=== PATIENT | female | born 1945 | race Caucasian/White ===

== ENCOUNTER 2016-04-13 06:41 | Emergency (ER) | payer MEDICARE ==
[2016-04-13 07:19] LABS: #Eosinphils 0.1 thou/uL (0.0-0.7); #Lymphocytes 0.5 thou/uL (1.20-3.40); #Monocytes 0.1 thou/uL (0.11-0.59); %Basophils 0.4 % (0.0-1.0); %Eosinophils 0.9 % (0.0-10.0); %Monocytes 1.9 % (0.0-10.0); Hematocrit 32.5 % (36.0-47.0); Mean Platelet Volume 5.7 fL (7.4-10.4); Red Blood Cell (RBC) Count 3.21 mill/uL (4.20-5.40); White Blood Cell (WBC) Count 5.6 thou/uL (4.8-10.8)
[2016-04-13] MEDS ORDERED: Levofloxacin 500 mg/D5W 100 ml Premix Bag ONE (07:32)
[2016-04-13] MEDS ORDERED: Sodium Chloride 0.9% 1,000 ML ONE (07:32)
[2016-04-13 07:35] LABS: ALT (SGPT) 9 U/L (0-55); AST (SGOT) 11 U/L (5-34); Alkaline Phosphatase 48 U/L (40-150); Anion Gap 12 mmol/L (10-20); BUN (Urea Nitrogen) 16 mg/dL (9.8-20.1); Bilirubin, Total 0.8 mg/dL (0.2-1.2); Calc. Creatinine Clearance 0 mL/min (70-130); Calcium 8.9 mg/dL (7.8-10.44); Chloride 108 mmol/L (98-107); Estimated GFR-MDRD 80; Globulin 2.9 g/dL (2.4-3.5); Protein, Total 6.7 g/dL (5.8-8.1)
[2016-04-13 07:40] LABS: Carbon Dioxide 22 mmol/L (23-31)
--- NOTE | 2016-04-13 07:59 | RAD ---
CHEST 1 VIEW: HISTORY: Lung cancer. Cough. COMPARISON: CT chest from 03/27/16. FINDINGS: Cardiac silhouette is magnified by projection. Mediastinum is midline with aortic calcification. R ight perihilar mass and infiltrate are similar in appearance to the prior exam. Lung markings exten d beyond a skin fold at the right lateral chest that mimics a pneumothorax. radiation monitor leads o verlie the chest. IMPRESSION: Right perihilar mass and infiltrate appear stable compared to recent CT. POS: LIONEL
[2016-04-13 08:16] LABS: Bilirubin Negative (Negative); Blood, Urine Negative (Negative); Glucose, Urine (Dipstick) Negative (Negative); Ketone, Urine Negative (Negative); Nitrite Positive (Negative); Protein, Urine (Dipstick) Negative (Neg-Trace)
[2016-04-13 08:24] LABS: RBC/HPF None Seen HPF (0-3)
[2016-04-13 08:25] LABS: Bacteria/HPF Rare-Few HPF (None Seen); Squamous Epithelial 0-3 HPF (0-3); WBC/HPF 0-3 HPF (0-3)
[2016-04-13] MEDS ORDERED: Sodium Chloride 0.9% 100 ML ONE (08:37)
[2016-04-13] MEDS ORDERED: cefTRIAXone\\ROCEPHIN 2 GM VIAL ONE (08:37)
[2016-04-13] MEDS ORDERED: HYDROcodone/Acetaminophen 10/325 mg Tablet ONE (08:40)
[2016-04-13] MEDS ORDERED: Benzonatate 100 MG CAP ONE (08:41)
--- NOTE | 2016-04-13 09:29 | ERRECORD ---
[facility] EMERGENCY RECORD ADMIN (06:46 EPIE) MERGE: Ambulance SatApr 13, 2016 06:26. HPI COUGH (07:07 SHAN) CHIEF COMPLAINT: Patient presents for evaluation of cough, non-productive, Patient presents for evaluation of getting worse for several days. HISTORIAN: History provided by patient, History provided by patient's spouse. SEVERITY: Maximum severity of symptoms moderate, Currently symptoms are moderate. EXACERBATED BY: Patient's condition exacerbated by nothing. RELIEVED BY: Patient's condition relieved by nothing. ROS (07:08 SHAN) CONSTITUTIONAL: Historian reports weakness. EYES: Negative eye review of systems. ENT: Historian reports hearing changes. CARDIOVASCULAR: Negative cardiovascular review of systems. RESPIRATORY: Historian reports cough. GI: Negative gastrointestinal review of systems. GENITOURINARY FEMALE: Negative genitourinary review of systems. MUSCULOSKELETAL: Negative musculoskeletal review of systems. SKIN: Negative skin review of systems. PSYCHIATRIC: Negative psychiatric review of systems. NOTES: All systems reviewed, negative except as described above. 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 (06:55 EPIE) Notes: lung cancer undergoing chemotherapy; small cell per . (07:13 SHAN) FEMALE SURGICAL HISTORY: CARDIAC STENTS, Surgical history of orthopedic surgery, BACK, right hip REPLACEMENT. (06:55 EPIE) PSYCHIATRIC HISTORY: No previous psychiatric history. (06:55 EPIE) SOCIAL HISTORY: Patient has no smoking history, Patient denies alcohol use, Patient denies drug use. (06:55 EPIE) Social History includes , speaks Vietnamese. Lives two blocks from hospital. (07:13 SHAN) FAMILY HISTORY: Family istory is not significant. (07:13 SHAN) NOTES: Nursing records reviewed, Agree with nursing records. (07:13 SHAN) &a-1R&a+25V*p+0X*n1364P*c202B*c15G*c2P*p-0X&a-25V&a+1R Name: Marisa Quinn : 1945 F70 MedRec: [id number] AcctNum: [id number] Prepared: SatApr 13, 2016 09:52 by Interface Page 1 of 4 pMD [facility] EMERGENCY RECORD KNOWN ALLERGIES Gluten Allergy Penicillins CURRENT MEDICATIONS Ecotrin Low Strength: TABLET, DELAYED RELEASE (ENTERIC COATED) : Strength - 81 mg : ORAL Patient Dose: once a day. (07:29 MSPE) albuterol sulfate: HFA AEROSOL WITH ADAPTER (GRAM) : Strength - 90 mcg : INHALATION Patient Dose: 2 inhalation INHALATION every 6 hours. (07:29 MSPE) Topamax: TABLET : Strength - 50 mg : ORAL Patient Dose: 1.5 tab(s) Oral.6 times a day. (07:36 MSPE) meTOPROLOL succinate: TABLET, EXTENDED RELEASE 24 HR : Strength - 50 mg : ORAL Patient Dose: 1 tab(s) Oral once a day. (07:37 MSPE) Head Waters: TABLET : Strength - 10 mg-325 mg : ORAL Patient Dose: 1-2 tab(s) Oral every 4 hours prn. (07:38 MSPE) Benicar HCT: TABLET : Strength - 40 mg-12.5 mg : ORAL Patient Dose: 1 tab(s) Oral once a day. (07:38 MSPE) pantoprazole: TABLET, DELAYED RELEASE (ENTERIC COATED) : Strength - 40 mg : ORAL Patient Dose: 1 tab(s) Oral once a day. (07:39 MSPE) VITAL SIGNS VITAL SIGNS: BP: 133/82, Resp: 20 (Non-Labored), Pain: 9, Time: 04/13/2016 06:42. (06:42 EPIE) Pulse: 105, Temp: 99.8 (Oral), O2 sat: 98 on Room Air, Time: 04/13/2016 06:46. (06:46 EPIE) BP: 138/75, Pulse: 96, Resp: 28, O2 sat: 99 on RA, Time: 04/13/2016 07:20. (07:20 MSPE) BP: 138/80, Pulse: 99, Resp: 20, O2 sat: 99 on Room Air, Time: 04/13/2016 08:00. (08:00 MSPE) Temp: 99.0 (Oral), Time: 04/13/2016 08:23. (08:23 MSPE) BP: 124/75, Pulse: 100, Resp: 13, O2 sat: 98 on Room Air, Time: 04/13/2016 09:00. (09:00 MSPE) PHYSICAL EXAM (07:09 SHAN) CONSTITUTIONAL: Vital Signs Reviewed, Patient afebrile, Pulse normal, Blood pressure normal, Respiratory rate normal, Normal pulse oximetry, Patient appears non toxic, Patient appears pain free, Patient alert and oriented to person, place and time, Nursing notes reviewed. HEAD: s/p hair loss from chemotherapy. EYES: Eye exam normal. &a-1R&a+25V*p+0X*v7091X*c202B*c15G*c2P*p-0X&a-25V&a+1R Name: Marisa Quinn : 1945 F70 MedRec: [id number] AcctNum: [id number] Prepared: SatApr 13, 2016 09:52 by Interface Page 2 of 4 pMD [facility] EMERGENCY RECORD ENT: Ear exam normal, Nose exam normal, Pharynx exam normal, Uvula exam normal, Tonsil exam normal, substantial hearing loss apparent, ongoing with tumor and chemo per . NECK: Neck exam normal. RESPIRATORY CHEST: minor ronchi and wheezing; some mild decreased breath sounds. CARDIOVASCULAR: Cardiovascular exam included findings of heart rate regular rate and rhythm, Heart sounds normal. ABDOMEN FEMALE: Abdominal exam included findings of abdomen nontender, Bowel sounds normal. BACK: Back exam normal. UPPER EXTREMITY: Upper extremity exam normal. NEURO: Hearing loss; mild difficulty with comprehension; but may be more from the communitation issues. Recognizes person, place and situation. SKIN: dry. LYMPHATIC: Lymphatic exam normal. PSYCHIATRIC: Psychiatric exam normal. MEDICATION ADMINISTRATION SUMMARY Drug Name: *Rocephin intravenous, Dose Ordered: 2 g, Route: IV Push, Status: Given, Time: 08:48 04/13/2016, Drug Name: Head Waters, Dose Ordered: 1 tab(s), Route: Oral, Status: Given, Time: 08:47 04/13/2016, Drug Name: Helena Ma, Dose Ordered: 2 cap(s), Route: Oral, Status: Given, Time: 08:47 04/13/2016, Drug Name: Levaquin intravenous, Dose Ordered: 500 mg, Route: IV Piggy Back, Status: Given, Time: 07:45 04/13/2016, Drug Name: Normal Saline, Dose Ordered: 1 L, Route: IV Fluid Infusion, Status: Given, Time: 07:45 04/13/2016, *Additional information available in notes, Detailed record available in Medication Service section. DOCTOR NOTES TEXT: Adult female, arrived by ambulance, accompanied by . c/o cough getting worse and causing much irritation. Was to talk with hospice later today. 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 Has had cardiac stents, orthopedic surgeries, and lesser problems in past. (07:15 SHAN) cbc, chem 20, ekg reasonably good; chest x-ray with right hilar mass and superior infiltrates, but read by radiologist as similar to prior ct of chest. Family present. Apparently they have all had a respiratory infection recently. 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 EMERGENCY RECORD date, Tetanus immunization up to date, Pneumococcal vaccine not up to date, (*per notes; but family relates that had flu and pneumonia update after this.) Past medical history includes cardiac history, Past medical history includes hematological history, Past medical history includes history of hypertension, Lung cancer (treated with radiation and chemo), asthma, trimeglia neuroglia, DC. FEMALE SURGICAL HISTORY: CARDIAC STENTS, Surgical history of orthopedic surgery, BACK, right hip REPLACEMENT . (07:26 SHAN) Discussed with her primary care provider; several discussions with family. Was advised to allow attempt at home care and them to meet with hospice. Also recommended that they all try hard to work as a unit to achieve her goals; if that can be understood. (09:14 NAVID) DATA REVIEWED: Lab data reviewed, Xray data reviewed, Reviewed EKG. (07:52 NAVID) Lab data reviewed, Xray data reviewed, Reviewed EKG. (09:14 NAVID) PROBLEM LIST No recorded problems DIAGNOSIS (:17 NAVID) FINAL: PRIMARY: Acute bronchitis, ADDITIONAL: coronary artery disease, Hypertension, MUSCLE WEAKNESS GENERALIZED, small cell carcinoma of lung with brain and adrenal mets. PRESCRIPTION Levaquin oral: TABLET : 500 mg : ORAL : Quantity: 1 Unit: tab(s) Route: ORAL Schedule: once a day Dispense: 10 Unit: tab(s) May substitute. Refills: No Refills . (:18 NAVID) NOTES: No Refills. (09:18 NAVID) Tessalon Perles: CAPSULE : 100 mg : ORAL : Quantity: 2 Unit: cap(s) Route: ORAL Schedule: every 6 hours PRN Dispense: 60 Unit: cap(s) May substitute. Refills: 1 . (: NAVID) NOTES: No Refills. (09: NAVID) DISPOSITION PATIENT: Disposition Type: Discharge, Disposition: *Discharge Home. (09:17 NAVID) Patient left the department. (09:50 HUGH) Winter: ADAM=MIKE Renner, Angelique MSPE=MIKE Saravia, Anne SHOEMAKER=MD Ernestina, Will &a-1R&a+25V*p+0X*t4212R*c202B*c15G*c2P*p-0X&a-25V&a+1R Name: Marisa Quinn : 1945 F70 MedRec: [id number] AcctNum: [id number] Prepared: SatApr 13, 2016 09:52 by Interface Page 4 of 4 pMD MTDD
--- NOTE | 2016-04-13 09:32 | PICIS ---
[facility] EMERGENCY RECORD ADMIN MERGE: Ambulance SatApr 13, 2016 06:26. (06:46 EPIE) TRIAGE (SatApr 13, 2016 06:44 EPIE) TRIAGE NOTES: Pt reports that she started chemo last week. Pt has meeting with hospice today. Pt reports weakness ongoing with cough. Last round of chemo on Saturday. (SatApr 13, 2016 06:44 EPIE) PATIENT: NAME: Marisa Quinn, AGE: 70, GENDER: female, : Sat1945, TIME OF GREET: SatApr 13, 2016 06:42, PREFERRED LANGUAGE: French, ETHNICITY: Not or , ECODE BILLING MAP: [facility], SSN: [id number], Zip Code: [address], KG WEIGHT: 54.43, PHONE: , , , PERSON ID: [id number], PCP: Chriss NORIEGA LUKE. (SatApr 13, 2016 06:44 EPIE) COMPLAINT: WEAKNESS. (SatApr 13, 2016 06:44 EPIE) ADMISSION: URGENCY: 3 Urgent, ADMISSION SOURCE: Home, TRANSPORT: AMBULANCE - [facility], BED: TRIAGE. (SatApr 13, 2016 06:44 EPIE) IMMUNIZATIONS: Flu vaccine up to date, Date of immunization: , Pneumococcal vaccine up to date, Date of immunization: Mar, 2016. (07:35 MSPE) TRIAGE SCREENING: Patient denies suicidal ideation, Patient denies presence of domestic violence. (06:55 EPIE) TREATMENTS IN PROGRESS: Treatments given Prehospital: none. (06:55 EPIE) PROVIDERS: TRIAGE NURSE: Angelique Renner RN. (SatApr 13, 2016 06:44 EPIE) VITAL SIGNS: BP 133/82, Resp 20, (Non-Labored), Pain 9, Time 04/13/2016 06:42. (06:42 EPIE) PREVIOUS VISIT ALLERGIES: Penicillins. (SatApr 13, 2016 06:44 EPIE) Penicillins. (06:55 EPIE) KNOWN ALLERGIES Gluten Allergy Penicillins CURRENT MEDICATIONS Ecotrin Low Strength: TABLET, DELAYED RELEASE (ENTERIC COATED) : Strength - 81 mg : ORAL Patient Dose: once a day. (07:29 MSPE) albuterol sulfate: HFA AEROSOL WITH ADAPTER (GRAM) : Strength - 90 mcg : INHALATION Patient Dose: 2 inhalation INHALATION every 6 hours. (07:29 MSPE) Topamax: TABLET : Strength - 50 mg : ORAL Patient Dose: 1.5 tab(s) Oral.6 times a day. (07:36 MSPE) meTOPROLOL succinate: TABLET, EXTENDED RELEASE 24 HR : Strength - 50 mg : ORAL &a-1R&a+25V*p+0X*b6450Q*c202B*c15G*c2P*p-0X&a-25V&a+1R Name: Marisa Quinn : 1945 F70 MedRec: [id number] AcctNum: [id number] Prepared: SatApr 13, 2016 09:54 by Interface Page 1 of 13 pMD [facility] EMERGENCY RECORD Patient Dose: 1 tab(s) Oral once a day. (07:37 MSPE) [place]: TABLET : Strength - 10 mg-325 mg : ORAL Patient Dose: 1-2 tab(s) Oral every 4 hours prn. (07:38 MSPE) Benicar HCT: TABLET : Strength - 40 mg-12.5 mg : ORAL Patient Dose: 1 tab(s) Oral once a day. (07:38 MSPE) pantoprazole: TABLET, DELAYED RELEASE (ENTERIC COATED) : Strength - 40 mg : ORAL Patient Dose: 1 tab(s) Oral once a day. (07:39 MSPE) VITAL SIGNS VITAL SIGNS: BP: 133/82, Resp: 20 (Non-Labored), Pain: 9, Time: 04/13/2016 06:42. (06:42 EPIE) Pulse: 105, Temp: 99.8 (Oral), O2 sat: 98 on Room Air, Time: 04/13/2016 06:46. (06:46 EPIE) BP: 138/75, Pulse: 96, Resp: 28, O2 sat: 99 on RA, Time: 04/13/2016 07:20. (07:20 MSPE) BP: 138/80, Pulse: 99, Resp: 20, O2 sat: 99 on Room Air, Time: 04/13/2016 08:00. (08:00 MSPE) Temp: 99.0 (Oral), Time: 04/13/2016 08:23. (08:23 MSPE) BP: 124/75, Pulse: 100, Resp: 13, O2 sat: 98 on Room Air, Time: 04/13/2016 09:00. (09:00 MSPE) NURSING ASSESSMENT: HEAD-TO-TOE (06:48 EPIE) CONSTITUTIONAL: Patient arrives, via [facility], Unsteady gait, Lift to cart, History obtained from, [facility], family member: , Patient appears comfortable, Patient cooperative, Patient alert, Oriented to person, place and time, Skin warm, Skin dry, Skin normal in color, Mucous membranes pink, Patient is well-groomed, Pt reports that she started chemo last week. Pt has meeting with hospice today. Pt reports weakness ongoing with cough. Last round of chemo on Saturday. PAIN: chronic back pain and rib pain from coughing, on a scale 0-10 patient rates pain as 9. NEURO: Able to close eyes, Face symmetrical, Speech normal, GCS:, Eye opening: (4) - Spontaneous, Verbal: (5) - Oriented/conversive, Motor: (6) - Obeys commands/Spontaneous, GCS Total: 15. RESPIRATORY/CHEST: Breath sounds clear, Respiratory assessment findings include respiratory effort easy, Respirations regular, Conversing normally, Neck and chest exam findings include trachea midline, Chest expansion equal, Chest movement symmetrical, Associated with cough, non-productive. CARDIOVASCULAR: Cardiovascular assessment findings include heart rate, tachycardic, Rate 105, Associated with weakness. ABDOMEN: Abdomen assessment findings include abdomen symmetrical, Abdomen soft. &a-1R&a+25V*p+0X*g5849Y*c202B*c15G*c2P*p-0X&a-25V&a+1R Name: Marisa Quinn : 1945 F70 MedRec: [id number] AcctNum: [id number] Prepared: SatApr 13, 2016 09:54 by Interface Page 2 of 13 pMD [facility] EMERGENCY RECORD NURSING PROCEDURE: BULLION WEIGHER (06:47 EPIE) PATIENT IDENTIFIER: Patient actively involved in identification process, Patient's identity verified by patient stating name, Patient's identity verified by hospital ID bracelet. BULLION WEIGHER: Patient placed on compliance monitor, Patient placed on non-invasive blood pressure monitor, with disposable blood pressure cuff applied, Patient placed on continuous pulse oximetry, Adult/pediatric oxisensor applied. FOLLOW-UP: After procedure, alarms set and on, After procedure, patient tolerating monitoring. NURSING PROCEDURE: DISCHARGE NOTE (09:45 MSPE) DISCHARGE: Patient discharged to home, on a stretcher, transported via non-urgent ambulance, accompanied by other family member, Summary of Care printed/ provided, Discharge instructions given to and daughter, Simple or moderate discharge teaching performed, Prescriptions given and instructions on side effects given, Above person(s) verbalized understanding of discharge instructions and follow-up care, Patient treated and evaluated by physician. BELONGINGS: Belongings remain with patient. NURSING PROCEDURE: EKG CHART EK lead EKG performed on the left chest, done by Swapna MCKEON, first EKG. (06:52 EPIE) FOLLOW-UP: After procedure, EKG for interpretation given to Dr. Ernestina ARSHAD. (06:51 EPIE) NURSING PROCEDURE: IV IV SITE 1: IV established, to the right antecubital, using a 20 gauge catheter, Saline lock established, Notes: IV started by EMS SPINNING DOFFER. (06:47 EPIE) IV therapy indicated for hydration, IV therapy indicated for medication administration, IV established, to the left forearm, using a 20 gauge catheter, in one attempt, IV site prepped with chloraprep, Saline lock established, Flushed with normal saline (mls): 8, Notes: Attempted to flush IV site placed by EMS SPINNING DOFFER. Pt c/o pain at site. HL dc'd and restarted as charted here. (07:20 MSPE) FOLLOW-UP SITE 1: After procedure, no drainage at IV site, After procedure, no swelling at IV site, After procedure, no redness at IV site. (06:47 EPIE) NOTES: Notes: EMS here; IV site dc'd with cath intact. 2x2 dressing applied. (09:40 MSPE) VITAL SIGNS: BP: 138, / 75, Pulse: 96, Resp: 28, O2 sat: 99, on: RA. (07:20 MSPE) NURSING PROCEDURE: NURSE NOTES (09:15 MSPE) NURSES NOTES: Notes: Pt will be dc'd home and to meet with hospice nurse this afternoon for further care (per pt's daughter). &a-1R&a+25V*p+0X*s9903T*c202B*c15G*c2P*p-0X&a-25V&a+1R Name: Marisa Quinn : 1945 F70 MedRec: [id number] AcctNum: [id number] Prepared: SatApr 13, 2016 09:54 by Interface Page 3 of 13 pMD [facility] EMERGENCY RECORD Spoke with Camille at EMS dispatch re: transportation home as pt too weak to be dc'd home with family members. Awaiting EMS for transport. Family members aware. NURSING PROCEDURE: POSITIONING PATIENT IDENTIFIER: Patient actively involved in identification process, Patient's identity verified by patient stating name, Patient's identity verified by patient stating date, Patient's identity verified by hospital ID bracelet. (09:15 MCBE) POSITIONING: Positioning indicated for prevention of pressure ulcers, Positioning indicated for for comfort, Patient placed in semi-Valencia's position, head of bed elevated, (degrees) 30. (07:50 MSPE) Positioning indicated for prevention of pressure ulcers, Patient placed in semi-Valencia's position, head of bed elevated, (degrees) 30, Notes: PILLOW PLACED UNDER LEFT HIP. (09:15 MCBE) FOLLOW-UP: After procedure, patient resting comfortably. (07:50 MSPE) NURSING PROCEDURE: URINE COLLECTION (07:50 MSPE) URINE COLLECTION FEMALE: Urine collection indicated for weakness, Urine collected by straight cath, using an 8fr catheter kit, in one attempt, output amount (mL) 11, urine yellow in color, and clear, Specimen collected, labeled in the presence of the patient and sent to lab, Specimen obtained for culture labeled in the presence of the patient and sent to lab, Pt tolerated procedure well. ORDER DETAILS Order Name: BULLION WEIGHER ED, Status: Canceled, Time: 07:00 04/13/2016, User: MSPE, - Ordered for: MD Do Stanley, - Entered by: MD Do Stanley - SatApr 13, 2016 07:00, - Quantity: 1, Order Name: BULLION WEIGHER ED, Status: Done, Time: 06:52 04/13/2016, User: ADAM, - Ordered for: MD Do Stanley, - Entered by: MIKE Renner Emily - SatApr 13, 2016 06:52, - Quantity: 1, Order Name: CATH STRAIGHT ED, Status: Done, Time: 07:55 04/13/2016, User: HUGH, - Ordered for: MD Do Stanley, - Entered by: MD Do Stanley - [facility] Apr 13, 2016 07:33, - Quantity: 1, Order Name: CBC with Differential, Status: Active, Time: 07:00 04/13/2016, User: NAVID, - Ordered for: MD Do Stanley, - Entered by: MD Do Stanley - [facility] Apr 13, 2016 07:00, - Quantity: 1, Order Name: Comprehensive Metabolic Panel, Status: Active, Time: &a-1R&a+25V*p+0X*m7342U*c202B*c15G*c2P*p-0X&a-25V&a+1R Name: Marisa Quinn : 1945 F70 MedRec: [id number] AcctNum: [id number] Prepared: SatApr 13, 2016 09:54 by Interface Page 4 of 13 pMD [facility] EMERGENCY RECORD 07:00 04/13/2016, User: NAVID, - Ordered for: MD Do Stanley, - Entered by: MD Do Stanley - [facility] Apr 13, 2016 07:00, - Quantity: 1, Order Name: Culture, Blood, Status: Active, Time: 07:00 04/13/2016, User: NAVID, - Ordered for: MD Do Stanley, - Entered by: MD Do Stanley - [facility] Apr 13, 2016 07:00, - Quantity: 1, Order Name: Culture, Urine, Status: Active, Time: 07:00 04/13/2016, User: NAVID, - Ordered for: MD Do Stanley, - Entered by: MD Do Stanley - [place] Apr 13, 2016 07:00, - Quantity: 1, Order Name: EKG 12 Lead in Emergency Room, Status: Active, Time: 06:52 04/13/2016, User: ADAM, - Ordered for: MD Do Stanley, - Entered by: MIKE Renner Emily - Fri Apr 13, 2016 06:52, - Quantity: 1, Order Name: Influenza A&B Ag Screen, Status: Active, Time: 07:35 04/13/2016, User: NAVID, - Ordered for: MD Do Stanley, - Entered by: MD Do Stanley - Fri Apr 13, 2016 07:35, - Quantity: 1, Order Name: SALINE LOCK, Status: Done, Time: 07:24 04/13/2016, User: HUGH, - Ordered for: MD Do Stanley, - Entered by: MD Do Stanley - Fri Apr 13, 2016 07:02, - Quantity: 1, Order Name: Urinalysis w/ Rflx Microscopic, Status: Active, Time: 07:00 04/13/2016, User: NAVID, - Ordered for: MD Do Stanley, - Entered by: MD Do Stanley - Fri Apr 13, 2016 07:00, - Quantity: 1, Order Name: XR Chest 1 View Portable, Status: Active, Time: 07:01 04/13/2016, User: NAVID, - Ordered for: MD Do Stanley, - Entered by: MD Do Stanley - Fri Apr 13, 2016 07:01, - Quantity: 1. MEDICATION ADMINISTRATION SUMMARY Drug Name: *Rocephin intravenous, Dose Ordered: 2 g, Route: IV Push, Status: Given, Time: 08:48 04/13/2016, Drug Name: [place], Dose Ordered: 1 tab(s), Route: Oral, Status: Given, Time: 08:47 04/13/2016, Drug Name: Tessalblayne Perles, Dose Ordered: 2 cap(s), Route: Oral, Status: Given, Time: 08:47 04/13/2016, Drug Name: Levaquin intravenous, Dose Ordered: 500 mg, Route: IV Piggy Back, Status: Given, Time: 07:45 04/13/2016, &a-1R&a+25V*p+0X*l0467Q*c202B*c15G*c2P*p-0X&a-25V&a+1R Name: Marisa Quinn : 1945 F70 MedRec: [id number] AcctNum: [id number] Prepared: SatApr 13, 2016 09:54 by Interface Page 5 of 13 pMD [facility] EMERGENCY RECORD Drug Name: Normal Saline, Dose Ordered: 1 L, Route: IV Fluid Infusion, Status: Given, Time: 07:45 04/13/2016, *Additional information available in notes, Detailed record available in Medication Service section. MEDICATION SERVICE Levaquin intravenous: Order: Levaquin intravenous (levofloxacin) - Dose: 500 mg : IV Piggy Back Schedule: Now Ordered by: Will Do MD Entered by: Will Do MD SatApr 13, 2016 07:29 , Acknowledged by: Anne Saravia RN SatApr 13, 2016 07:33 Documented as given by: Anne Saravia RN SatApr 13, 2016 07:45 Patient, Medication, Dose, Route and Time verified prior to administration. Amount given: 500mg, IV SITE #1 IVPB or drip, initial infusion, Premixed, via primary tubing, on an IV pump, at 100 ml/hr, Slightly drowsey, easily aroused-acceptable, Verified Blood Culture collection prior to Antibiotic administration, Connections checked prior to administration, Line traced prior to administration, Catheter placement confirmed via flush prior to administration, IV site without signs or symptoms of infiltration during medication administration, No swelling during administration, No drainage during administration, IV flushed after administration, Correct patient, time, route, dose and medication confirmed prior to administration, Patient advised of actions and side-effects prior to administration, Allergies confirmed and medications reviewed prior to administration, Patient in position of comfort, Side rails up, Cart in lowest position, Family at bedside. : Follow Up : _IV SITE #1:_, Medication infusion discontinued, on SatApr 13, 2016 08:45, Total infusion time IV site 1 1 hour, ., Total amount infused: 100ml, IV Line flushed after administration. (08:45 MSPE) [place]: Order: [place] (hydrocodone bitartrate/acetaminophen) - Dose: 1 tab(s) : Oral Schedule: Now Ordered by: Will Do MD Entered by: Will Do MD SatApr 13, 2016 08:38 , Acknowledged by: Felicitas Diaz SatApr 13, 2016 08:39 Documented as given by: Felicitas Emily SatApr 13, 2016 08:47 Patient, Medication, Dose, Route and Time verified prior to administration. Amount given: 1 TAB, Site: Medication administered P.O., Patient appears Awake and alert- acceptable, Correct patient, time, route, dose and medication confirmed prior to administration, Patient advised of actions and side-effects prior to administration, Allergies confirmed and medications reviewed prior to administration, Patient in position of comfort, Side rails up, Cart in lowest position, Family at bedside, Call light in reach. Normal Saline: Order: Normal Saline (0.9 % sodium chloride) - &a-1R&a+25V*p+0X*v3721J*c202B*c15G*c2P*p-0X&a-25V&a+1R Name: Marisa Quinn : 1945 F70 MedRec: [id number] AcctNum: [id number] Prepared: SatApr 13, 2016 09:54 by Interface Page 6 of 13 pMD [facility] EMERGENCY RECORD Dose: 1 L : IV Fluid Infusion Schedule: Bolus Ordered by: Will Do MD Entered by: Will Do MD SatApr 13, 2016 07:33 , Acknowledged by: Anne Saravia RN SatApr 13, 2016 07:33 Documented as given by: Anne Saravia RN SatApr 13, 2016 07:45 Patient, Medication, Dose, Route and Time verified prior to administration. Amount given: 1000ml, IV SITE #1 IV fluids established for hydration, IV SITE #1 into left forearm, IV SITE #1 1st bag hung, amount 1 Liter hung, IV SITE #1 bolus of 1000 ml established, IV SITE #1 Rate of bolus, wide open, via primary tubing, via gravity tubing, Awake and alert- acceptable, Connections checked prior to administration, Line traced prior to administration, Catheter placement confirmed via flush prior to administration, IV site without signs or symptoms of infiltration during medication administration, No swelling during administration, No drainage during administration, IV flushed after administration, Correct patient, time, route, dose and medication confirmed prior to administration, Patient advised of actions and side-effects prior to administration, Allergies confirmed and medications reviewed prior to administration, Patient in position of comfort, Side rails up, Cart in lowest position, Family at bedside. : Follow Up : _IV SITE #1:_, IV fluid infusion discontinued, on SatApr 13, 2016 08:32, 50 minutes, ., Total amount infused: 1000ml, IV Line flushed after administration. (08:32 MSPE) Rocephin intravenous: Order: Rocephin intravenous (ceftriaxone sodium) - Dose: 2 g : IV Push POTENTIAL ALLERGY REACTION: 'Penicillins' - Benefits outweigh risks Schedule: Now Notes: tolerated in past Ordered by: Will Do MD Entered by: Will Do MD SatApr 13, 2016 07:28 Documented as given by: Anne Saravia RN SatApr 13, 2016 08:48 Patient, Medication, Dose, Route and Time verified prior to administration. Amount given: 2Grams, IV SITE #1 IVPB or drip, subsequent infusion, IVPB mixed in: 100ml, Fluid: 0.9NS, via primary tubing, on an IV pump, at 200 ml/hr, Slightly drowsey, easily aroused-acceptable, Verified Blood Culture collection prior to Antibiotic administration, Connections checked prior to administration, Line traced prior to administration, Catheter placement confirmed via flush prior to administration, IV site without signs or symptoms of infiltration during medication administration, No swelling during administration, No drainage during administration, IV flushed after administration, Correct patient, time, route, dose and medication confirmed prior to administration, Patient advised of actions and side-effects prior to administration, Allergies confirmed and medications reviewed prior to administration, Patient in position of comfort, Side rails up, Cart in lowest position, Family at bedside. &a-1R&a+25V*p+0X*k7531M*c202B*c15G*c2P*p-0X&a-25V&a+1R Name: Marisa Quinn : 1945 F70 MedRec: [id number] AcctNum: [id number] Prepared: SatApr 13, 2016 09:54 by Interface Page 7 of 13 pMD [facility] EMERGENCY RECORD : Follow Up : Response assessment performed, No signs or symptoms of allergic reaction noted, _IV SITE #1:_, Medication infusion discontinued, on SatApr 13, 2016 09:19, 35 minutes, ., Total amount infused: 100ML, IV Line flushed after administration. (09:19 MCBE) Tamikaboomblayne Francesca: Order: Tamikaboomblayne Ravindramariah (benzonatate) - Dose: 2 cap(s) : Oral Schedule: Now Ordered by: Will Do MD Entered by: Will Do MD SatApr 13, 2016 08:39 Documented as given by: Felicitas Diaz SatApr 13, 2016 08:47 Patient, Medication, Dose, Route and Time verified prior to administration. Amount given: 2CAPS, Site: Medication administered P.O., Patient appears Awake and alert- acceptable, Correct patient, time, route, dose and medication confirmed prior to administration, Patient advised of actions and side-effects prior to administration, Allergies confirmed and medications reviewed prior to administration, Patient in position of comfort, Side rails up, Cart in lowest position, Family at bedside, Call light in reach. HPI COUGH (:07 [facility]) CHIEF COMPLAINT: Patient presents for evaluation of cough, non-productive, Patient presents for evaluation of getting worse for several days. HISTORIAN: History provided by patient, History provided by patient's spouse. SEVERITY: Maximum severity of symptoms moderate, Currently symptoms are moderate. EXACERBATED BY: Patient's condition exacerbated by nothing. RELIEVED BY: Patient's condition relieved by nothing. ROS (:08 SHAN) CONSTITUTIONAL: Historian reports weakness. EYES: Negative eye review of systems. ENT: Historian reports hearing changes. CARDIOVASCULAR: Negative cardiovascular review of systems. RESPIRATORY: Historian reports cough. GI: Negative gastrointestinal review of systems. GENITOURINARY FEMALE: Negative genitourinary review of systems. MUSCULOSKELETAL: Negative musculoskeletal review of systems. SKIN: Negative skin review of systems. PSYCHIATRIC: Negative psychiatric review of systems. NOTES: All systems reviewed, negative except as described above. PAST MEDICAL HISTORY MEDICAL HISTORY: Notes: small cell CA..had brain radiation treatment, Past medical history includes cardiac history, coronary artery disease, Treated with stent placement, Flu vaccine up to date, Tetanus immunization up to date, Pneumococcal vaccine not up to date, &a-1R&a+25V*p+0X*d9903K*c202B*c15G*c2P*p-0X&a-25V&a+1R Name: Marisa Quinn : 1945 F70 MedRec: [id number] AcctNum: [id number] Prepared: SatApr 13, 2016 09:54 by Interface Page 8 of 13 pMD [facility] EMERGENCY RECORD Past medical history includes cardiac history, Past medical history includes hematological history, Past medical history includes history of hypertension, Brain radiation as well, 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 (06:55 EPIE) Notes: lung cancer undergoing chemotherapy; small cell per . (07:13 SHAN) FEMALE SURGICAL HISTORY: CARDIAC STENTS, Surgical history of orthopedic surgery, BACK, right hip REPLACEMENT. (06:55 EPIE) PSYCHIATRIC HISTORY: No previous psychiatric history. (06:55 EPIE) SOCIAL HISTORY: Patient has no smoking history, Patient denies alcohol use, Patient denies drug use. (06:55 EPIE) Social History includes , speaks French. Lives two blocks from hospital. (07:13 SHAN) FAMILY HISTORY: Family istory is not significant. (07:13 SHAN) NOTES: Nursing records reviewed, Agree with nursing records. (07:13 SHAN) PHYSICAL EXAM (07:09 SHAN) CONSTITUTIONAL: Vital Signs Reviewed, Patient afebrile, Pulse normal, Blood pressure normal, Respiratory rate normal, Normal pulse oximetry, Patient appears non toxic, Patient appears pain free, Patient alert and oriented to person, place and time, Nursing notes reviewed. HEAD: s/p hair loss from chemotherapy. EYES: Eye exam normal. ENT: Ear exam normal, Nose exam normal, Pharynx exam normal, Uvula exam normal, Tonsil exam normal, substantial hearing loss apparent, ongoing with tumor and chemo per . NECK: Neck exam normal. RESPIRATORY CHEST: minor ronchi and wheezing; some mild decreased breath sounds. CARDIOVASCULAR: Cardiovascular exam included findings of heart rate regular rate and rhythm, Heart sounds normal. ABDOMEN FEMALE: Abdominal exam included findings of abdomen nontender, Bowel sounds normal. BACK: Back exam normal. UPPER EXTREMITY: Upper extremity exam normal. NEURO: Hearing loss; mild difficulty with comprehension; but may be more from the communitation issues. Recognizes person, place and situation. SKIN: dry. LYMPHATIC: Lymphatic exam normal. PSYCHIATRIC: Psychiatric exam normal. EVENTS TRANSFER: Triage to Emergency Triage. (SatApr 13, 2016 06:44 EPIE) Emergency Triage to Emergency Room -04. (06:46 EPIE) Removed from Emergency Emergency Room -04. (09:50 MSPE) &a-1R&a+25V*p+0X*s9423M*c202B*c15G*c2P*p-0X&a-25V&a+1R Name: Marisa Quinn : 1945 F70 MedRec: [id number] AcctNum: [id number] Prepared: SatApr 13, 2016 09:54 by Interface Page 9 of 13 pMD [facility] EMERGENCY RECORD DOCTOR NOTES TEXT: Adult female, arrived by ambulance, accompanied by . c/o cough getting worse and causing much irritation. Was to talk with hospice later today. 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 Has had cardiac stents, orthopedic surgeries, and lesser problems in past. (07:15 SHAN) cbc, chem 20, ekg reasonably good; chest x-ray with right hilar mass and superior infiltrates, but read by radiologist as similar to prior ct of chest. Family present. Apparently they have all had a respiratory infection recently. (07:52 SHAN) Prior pmh available: MEDICAL HISTORY: Notes (per recent oncology hx): small cell CA..had brain radiation treatment, Past medical history includes cardiac history, coronary artery disease, Treated with stent placement, Flu vaccine up to date, Tetanus immunization up to date, Pneumococcal vaccine not up to date, (*per notes; but family relates that had flu and pneumonia update after this.) Past medical history includes cardiac history, Past medical history includes hematological history, Past medical history includes history of hypertension, Lung cancer (treated with radiation and chemo), asthma, trimeglia neuroglia, OR. FEMALE SURGICAL HISTORY: CARDIAC STENTS, Surgical history of orthopedic surgery, BACK, right hip REPLACEMENT . (07:26 SHAN) Discussed with her primary care provider; several discussions with family. Was advised to allow attempt at home care and them to meet with hospice. Also recommended that they all try hard to work as a unit to achieve her goals; if that can be understood. (09:14 SHAN) DATA REVIEWED: Lab data reviewed, Xray data reviewed, Reviewed EKG. (07:52 SHAN) Lab data reviewed, Xray data reviewed, Reviewed EKG. 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 DISPOSITION PATIENT: Disposition Type: Discharge, Disposition: *Discharge Home. (09:17 ) &a-1R&a+25V*p+0X*o1304X*c202B*c15G*c2P*p-0X&a-25V&a+1R Name: Marisa Quinn : 1945 F70 MedRec: [id number] AcctNum: [id number] Prepared: SatApr 13, 2016 09:54 by Interface Page 10 of 13 pMD [facility] EMERGENCY RECORD Patient left the department. (09:50 MSPE) INSTRUCTION (:) DISCHARGE: BRONCHITIS, ABX TX (ADULT). FOLLOWUP: Chriss NORIEGA, JIE, Internal Medicine, [address] [place] [id number], . SPECIAL: 1. antibiotic one a day with food 2. tessalon pearles one or two up to four times a day if needed 3. discuss with hospice nurse the goals and choices (has apt today) 4. try to have followup with regular provider soon 5. return if condition worsens. PRESCRIPTION Levaquin oral: TABLET : 500 mg : ORAL : Quantity: 1 Unit: tab(s) Route: ORAL Schedule: once a day Dispense: 10 Unit: tab(s) May substitute. Refills: No Refills . (:18 ) NOTES: No Refills. (:18 ) Tessalon Perles: CAPSULE : 100 mg : ORAL : Quantity: 2 Unit: cap(s) Route: ORAL Schedule: every 6 hours PRN Dispense: 60 Unit: cap(s) May substitute. Refills: 1 . (:) NOTES: No Refills. (: SHAN) IMAGING *EKG: Image captured from scanner. (08:10 MSPE) *DISCHARGE INSTRUCTIONS RECEIPT: Image captured from scanner. (09:47 MSPE) Page 2 added. Image captured from scanner. (09:47 MSPE) *SUPPLY CHARGE SHEET: Image captured from scanner. (09:48 MSPE) ADMIN DIGITAL SIGNATURE: MD Do Stanley. (09:21 SHAN) RESULTS RADIOLOGY: XR Chest 1 View Portable Observe DT: SatApr 13, 2016 07:02, CXRP CHEST 1 VIEW: HISTORY: Lung cancer. Cough. COMPARISON: CT chest from 03/27/16. FINDINGS: Cardiac silhouette is magnified by projection. Mediastinum is midline with aortic calcification. R ight perihilar mass and infiltrate are similar in appearance to the &a-1R&a+25V*p+0X*c4604M*c202B*c15G*c2P*p-0X&a-25V&a+1R Name: Marisa Quinn : 1945 F70 MedRec: [id number] AcctNum: [id number] Prepared: SatApr 13, 2016 09:54 by Interface Page 11 of 13 pMD [facility] EMERGENCY RECORD prior exam. Lung markings exten d beyond a skin fold at the right lateral chest that mimics a pneumothorax. monitor tech leads o verlie the chest. IMPRESSION: Right perihilar mass and infiltrate appear stable compared to recent CT. POS: [facility] . (08:22 MCBE) LABORATORY: CBC with Differential Collection DT: SatApr 13, 2016 07:12, White Blood Cell (WBC) Count 5.6 thou/uL, Range (4.8-10.8), *Red Blood Cell (RBC) Count 3.21 - L mill/uL, Range (4.20-5.40), *Hemoglobin 10.5 - L g/dL, Range (12.0-16.0), *Hematocrit 32.5 - L %, Range (36.0-47.0), *Mean Corpuscular Volume 101.0 - H fl, Range (81.0-99.0), *Mean Corpuscular Hemoglobin 32.7 - H pg, Range (27.0-31.0), Mean Corpuscular HGB CONC 32.3 g/dL, Range (32.0-36.0), RBC Distribution Width 11.6 %, Range (11.5-14.5), Platelet Count 152 thou/uL, Range (130-400), *Mean Platelet Volume 5.7 - L fL, Range (7.4-10.4), *%Neutrophils 88.7 - H %, Range (42.0-75.0), *%Lymphocytes 8.0 - L %, Range (21.0-51.0), %Monocytes 1.9 %, Range (0.0-10.0), %Eosinophils 0.9 %, Range (0.0-10.0), %Basophils 0.4 %, Range (0.0-1.0), #Neutrophils 5.0 thou/uL, Range (1.40-6.50), *#Lymphocytes 0.5 - L thou/uL, Range (1.20-3.40), *#Monocytes 0.1 - L thou/uL, Range (0.11-0.59), #Eosinphils 0.1 thou/uL, Range (0.0-0.7), #Basophils 0.0 thou/uL, Range (0.0-0.2). (07:22 SHAN) Comprehensive Metabolic Panel Collection DT: SatApr 13, 2016 07:12, Sodium 139 mmol/L, Range (136-145), *Potassium 3.4 - L mmol/L, Range (3.5-5.1), *Chloride 108 - H mmol/L, Range (98-107), *Carbon Dioxide 22 - L mmol/L, Range (23-31), Anion Gap 12 mmol/L, Range (10-20), BUN (Urea Nitrogen) 16 mg/dL, Range (9.8-20.1), Creatinine 0.72 mg/dL, Range (0.6-1.1), Estimated GFR-MDRD 80 , Reference Range for Estimated GFR: Greater than 90, mL/min/1.73 m2 NOTE: The MDRD equation has not been validated for use, with the elderly (over 70 years of age), women, patients with, serious comorbid condition or persons with extremes of body size, muscle, mass, or nutritional status. , &a-1R&a+25V*p+0X*t9692H*c202B*c15G*c2P*p-0X&a-25V&a+1R Name: Marisa Quinn : 1945 F70 MedRec: [id number] AcctNum: [id number] Prepared: SatApr 13, 2016 09:54 by Interface Page 12 of 13 pMD [facility] EMERGENCY RECORD *Glucose 119 - H mg/dL, Range (83-110), Calcium 8.9 mg/dL, Range (7.8-10.44), Bilirubin, Total 0.8 mg/dL, Range (0.2-1.2), Protein, Total 6.7 g/dL, Range (5.8-8.1), NOTE: Plasma values are generally 0.3 to 0.5 g/dL higher than serum values, due to the presence of fibrinogen. , Albumin 3.8 g/dL, Range (3.4-4.8), Globulin 2.9 g/dL, Range (2.4-3.5), Alb/Glob Ratio 1.3 g/dL, Range (1.2-2.2), Alkaline Phosphatase 48 U/L, Range (40-150), AST (SGOT) 11 U/L, Range (5-34), ALT (SGPT) 9 U/L, Range (0-55). (07:52 NAVID) Winter: ADAM=MIKE Renner, Angelique ALDANA=Felicitas DiazE=MIKE Saravia, Anne SHOEMAKER=MD Ernestina, Will &a-1R&a+25V*p+0X*j3752F*c202B*c15G*c2P*p-0X&a-25V&a+1R Name: Marisa Quinn : 1945 F70 MedRec: [id number] AcctNum: [id number] Prepared: SatApr 13, 2016 09:54 by Interface Page 13 of 13 pMD [facility]TDD
== END 2016-04-13 09:45 | disposition home or self-care (01) ==
LOC: NAV ERS 06:41
DX: J20.9 Acute bronchitis, unspecified (principal); C34.90 Malignant neoplasm of unspecified part of unspecified bronchus or lung; C79.70 Secondary malignant neoplasm of unspecified adrenal gland; C71.9 Malignant neoplasm of brain, unspecified; I25.10 Atherosclerotic heart disease of native coronary artery without angina pectoris; I10 Essential (primary) hypertension; M62.81 Muscle weakness (generalized)
CPT/HCPCS: 51701; 71010; 80053; 81003; 81015; 85025; 87040; 87077; 87086; 87186; 93005; 96365; 96367; J0696; J1956; J7050